=== PATIENT | male | born 1970 | race Caucasian/White ===

== ENCOUNTER 2017-05-03 23:12 | Emergency (ER) | payer SELFPAY ==
[~2017-05-03] VITALS: Ht 177.8 cm; Wt 77.0 kg
[2017-05-03 23:44] LABS: HEMOGLOBIN 15.5 g/dl (14.0-18.0); IMMATURE GRANULOCYTES 0.3 % (0.0-1.0); MEAN CELL VOLUME 96.8 fL CALC (80.0-100.0); MEAN CORPUSCULAR HGB 33.3 pG CALC (26.0-32.0); MEAN CORPUSCULAR HGB CONC 34.4 g/L CALC (32.0-36.0); NEUT# 3.13 thou/uL (1.82-7.42); RED BLOOD COUNT 4.65 mill/uL (4.70-6.10); RED CELL DISTRI WIDTH 11.5 % (11.5-15.5)
[2017-05-03 23:50] LABS: ALBUMIN 4.4 g/dL (3.2-5.0); ALKALINE PHOSPHATASE 47 u/l (38-126); ANION GAP 20 (6-22 (CALC)); BILIRUBIN, TOTAL 0.6 mg/dL (0.0-1.4); BUN 9 mg/dL (9-20); BUN/CREATININE RATIO 11 (12-20 (CALC)); CALCIUM 8.9 mg/dL (8.4-10.2); CARBON DIOXIDE 21 mmol/l (22-30); CHLORIDE 99 mmol/l (95-108); CREATININE 0.8 mg/dL (0.7-1.3); ETHYL ALCOHOL 210 mg/dl (0-30); GFR > 60 ML/MIN (>=60 (CALC)); GFR FOR AFR.AMER. > 60 ML/MIN (>=60 (CALC)); GLUCOSE 102 mg/dL (75-110); SGOT/AST 34 u/l (17-59); SGPT/ALT 32 u/l (21-72); SODIUM 136 mmol/l (137-146); TOTAL PROTEIN 6.9 g/dL (6.3-8.2)
[2017-05-04 00:42] VITALS: BP 135/82
== END 2017-05-04 00:42 | disposition short-term general hospital (02) | DRG 87 ==
LOC: ED 23:12
PROVIDERS: Emergency Medicine
DX: S06.6X0A Traumatic subarachnoid hemorrhage without loss of consciousness, initial encounter (principal); S06.5X0A Traumatic subdural hemorrhage without loss of consciousness, initial encounter; F10.10 Alcohol abuse, uncomplicated; S01.511A Laceration without foreign body of lip, initial encounter; Y04.2XXA Assault by strike against or bumped into by another person, initial encounter; Y08.89XA Assault by other specified means, initial encounter; Y93.9 Activity, unspecified; Y92.009 Unspecified place in unspecified non-institutional (private) residence as the place of occurrence of the external cause; Y90.7 Blood alcohol level of 200-239 mg/100 ml

== ENCOUNTER 2017-05-10 04:00 | Emergency (ER) | payer SELFPAY ==
[~2017-05-10] VITALS: Ht 177.8 cm; Wt 81.0 kg
[2017-05-10 04:27] LABS: HEMATOCRIT 40.4 % (39.0-50.0); HEMOGLOBIN 15.5 g/dl (14.0-18.0); IMMATURE GRANULOCYTES 1.1 % (0.0-1.0); MEAN CELL VOLUME 86.5 fL CALC (80.0-100.0); MEAN CORPUSCULAR HGB 33.2 pG CALC (26.0-32.0); MEAN CORPUSCULAR HGB CONC 38.4 g/L CALC (32.0-36.0); NEUT# 11.18 thou/uL (1.82-7.42); RED BLOOD COUNT 4.67 mill/uL (4.70-6.10); RED CELL DISTRI WIDTH 11.1 % (11.5-15.5)
[2017-05-10 04:37] LABS: ALBUMIN 4.6 g/dL (3.2-5.0); ALKALINE PHOSPHATASE 55 u/l (38-126); BUN 7 mg/dL (9-20); BUN/CREATININE RATIO 11 (12-20 (CALC)); CALCIUM 9.3 mg/dL (8.4-10.2); CARBON DIOXIDE 22 mmol/l (22-30); CHLORIDE 79 mmol/l (95-108); CREATININE 0.6 mg/dL (0.7-1.3); GFR > 60 ML/MIN (>=60 (CALC)); GFR FOR AFR.AMER. > 60 ML/MIN (>=60 (CALC)); GLUCOSE 138 mg/dL (75-110); SGOT/AST 38 u/l (17-59); SGPT/ALT 32 u/l (21-72); TOTAL PROTEIN 7.6 g/dL (6.3-8.2)
[2017-05-10 04:39] LABS: ANION GAP 18 (6-22 (CALC)); ETHYL ALCOHOL < 10 mg/dl (0-30)
[2017-05-10 04:41] LABS: PROTHROMBIN TIME 10.7 SECONDS (9.0-12.5)
[2017-05-10 04:44] LABS: SODIUM 115 mmol/l (137-146)
[2017-05-10 04:48] LABS: MYOGLOBIN 902 ng/mL (0 - 121)
[2017-05-10 04:48] LABS: URINE BILIRUBIN - DIPSTICK NEGATIVE (NEGATIVE); URINE BLOOD DIPSTICK TRACE-INTACT (NEGATIVE); URINE COLOR YELLOW; URINE GLUCOSE - DIPSTICK 250 mg/dL (NEGATIVE); URINE KETONE 40 mg/dL (NEGATIVE); URINE LEUK ESTERASE NEGATIVE (NEGATIVE); URINE NITRITE - DIPSTICK NEGATIVE (Negative); URINE PROTEIN - DIPSTICK TRACE mg/dL (NEG-TRACE)
[2017-05-10 04:49] LABS: URINE CLARITY CLOUDY
[2017-05-10 04:59] LABS: BARBITURATES NEGATIVE (NEGATIVE); COCAINE NEGATIVE (NEGATIVE); METHADONE NEGATIVE (NEGATIVE); OXCYCODONE NEGATIVE (NEGATIVE); TETRAHYDROCANNABIONOL NEGATIVE (NEGATIVE); TRICYLIC ANTIDEPRESSANTS NEGATIVE (NEGATIVE)
[2017-05-10 06:20] VITALS: BP 160/94
== END 2017-05-10 06:20 | disposition short-term general hospital (02) | DRG 101 ==
LOC: ED 04:00
PROVIDERS: Emergency Medicine
PROC: 0T9B70Z Drainage of Bladder with Drainage Device, Via Natural or Artificial Opening (ICD-10-PCS; principal; 2017-05-10)
DX: R56.9 Unspecified convulsions (principal); S06.5X0D Traumatic subdural hemorrhage without loss of consciousness, subsequent encounter; S06.6X0D Traumatic subarachnoid hemorrhage without loss of consciousness, subsequent encounter; Y04.2XXD Assault by strike against or bumped into by another person, subsequent encounter
CPT/HCPCS: J1953; J2060

== ENCOUNTER 2018-06-22 16:07 | Emergency (ER) | payer OTHER ==
[~2018-06-22] VITALS: Ht 177.8 cm; Wt 87.7 kg
[2018-06-22 16:43] LABS: HEMOGLOBIN 16.2 g/dl (14.0-18.0); IMMATURE GRANULOCYTES 0.4 % (0.0-5.0); MEAN CORPUSCULAR HGB CONC 34.2 g/L CALC (32.0-36.0); NEUT# 9.39 thou/uL (1.82-7.42); RED BLOOD COUNT 5.06 mill/uL (4.70-6.10)
[2018-06-22 16:45] LABS: HEMATOCRIT 47.3 % (39.0-50.0); MEAN CELL VOLUME 93.5 fL CALC (80.0-100.0)
[2018-06-22 16:57] LABS: BUN 10 mg/dL (9-20); BUN/CREATININE RATIO 10 (12-20 (CALC)); CARBON DIOXIDE 21 mmol/l (22-30); GFR > 60 ML/MIN (>=60 (CALC)); GFR FOR AFR.AMER. > 60 ML/MIN (>=60 (CALC))
[2018-06-22 16:58] LABS: ANION GAP 26 (6-22 (CALC)); CHLORIDE 94 mmol/l (95-108); SODIUM 137 mmol/l (137-146)
[2018-06-22 18:03] VITALS: BP 156/72
== END 2018-06-22 18:03 | disposition home or self-care (01) ==
LOC: ED 16:07
PROVIDERS: Family Medicine
DX: R56.9 Unspecified convulsions (principal)

== ENCOUNTER 2019-03-06 09:23 | Emergency (ER) | payer SELFPAY ==
[~2019-03-06] VITALS: Ht 177.8 cm; Wt 90.0 kg
[2019-03-06 10:31] LABS: HEMATOCRIT 49.5 % (39.0-50.0); HEMOGLOBIN 16.5 g/dl (14.0-18.0); MEAN CELL VOLUME 98.8 fL CALC (80.0-100.0); MEAN CORPUSCULAR HGB 32.9 pG CALC (26.0-32.0); MEAN CORPUSCULAR HGB CONC 33.3 g/L CALC (32.0-36.0); NEUT# 4.18 thou/uL (1.82-7.42); RED BLOOD COUNT 5.01 mill/uL (4.70-6.10); RED CELL DISTRI WIDTH 12.5 % (11.5-15.5)
[2019-03-06 10:52] LABS: ALBUMIN 4.8 g/dL (3.2-5.0); ALKALINE PHOSPHATASE 62 u/l (38-126); BILIRUBIN, TOTAL 0.6 mg/dL (0.0-1.4); BUN 14 mg/dL (9-20); BUN/CREATININE RATIO 16 (12-20 (CALC)); CHLORIDE 100 mmol/l (95-108); CREATININE 0.9 mg/dL (0.7-1.3); GFR > 60 ML/MIN (>=60 (CALC)); GFR FOR AFR.AMER. > 60 ML/MIN (>=60 (CALC)); SODIUM 142 mmol/l (137-146); TOTAL PROTEIN 8.2 g/dL (6.3-8.2)
[2019-03-06 11:01] LABS: ANION GAP 19 (6-22 (CALC)); CARBON DIOXIDE 27 mmol/l (22-30); SGOT/AST 171 u/l (17-59)
[2019-03-06 11:04] LABS: MYOGLOBIN 429 ng/mL (0 - 121)
[2019-03-06 12:57] LABS: COCAINE NEGATIVE (NEGATIVE); METHADONE NEGATIVE (NEGATIVE); TETRAHYDROCANNABIONOL NEGATIVE (NEGATIVE)
[2019-03-06 12:58] LABS: BARBITURATES NEGATIVE (NEGATIVE); OXCYCODONE NEGATIVE (NEGATIVE); TRICYLIC ANTIDEPRESSANTS NEGATIVE (NEGATIVE); URINE BILIRUBIN - DIPSTICK NEGATIVE (NEGATIVE); URINE BLOOD DIPSTICK NEGATIVE (NEGATIVE); URINE COLOR YELLOW; URINE GLUCOSE - DIPSTICK NEGATIVE (NEGATIVE); URINE KETONE NEGATIVE (NEGATIVE); URINE LEUK ESTERASE NEGATIVE (NEGATIVE); URINE NITRITE - DIPSTICK NEGATIVE (Negative); URINE PH 6.5 (4.5-8.0); URINE PROTEIN - DIPSTICK TRACE mg/dL (NEG-TRACE); URINE UROBILINOGEN - DIPSTICK 0.2 E.U./dL (0.2)
[2019-03-06] MEDS ORDERED: LISINOPRIL10 MG PO (13:25)
[2019-03-06] MEDS ORDERED: KEPPRA500 M2 PO (13:25)
[2019-03-06 13:27] VITALS: BP 141/88
== END 2019-03-06 13:42 | disposition home or self-care (01) | DRG 101 ==
LOC: ED 09:23
PROVIDERS: Family Medicine
DX: G40.409 Other generalized epilepsy and epileptic syndromes, not intractable, without status epilepticus (principal); I10 Essential (primary) hypertension; T42.6X6A Underdosing of other antiepileptic and sedative-hypnotic drugs, initial encounter; T46.5X6A Underdosing of other antihypertensive drugs, initial encounter; Z87.820 Personal history of traumatic brain injury; Z91.128 Patient's intentional underdosing of medication regimen for other reason
CPT/HCPCS: J1953